=== PATIENT | female | born 1955 ===

== ENCOUNTER 2025-08-26 15:05 | Outpatient (AMB) | payer MEDICARE, SELFPAY ==
--- OUTSIDE RECORDS SUMMARY | 2024-07-22 09:00 | XMS_ITS ---
Author Organization [facility] Address [address] [place] [address] Care Team Providers Care Leadership Program Intern Name Role Phone Sera LEUNG, Zain Primary Care Provider Unav ailable Angel Martinez Unavailable [phone] Encounters Encounter Location Date [facility] [address] 07/22/2024 Angel Martinez Plan Of Treatment No Information Progress Notes * Allie DENNEY SDOB:1955 (69 yo F)Acc No.[id number]:07/22/2024 Progress Note Patient: Allie WHITE Provider: Zoe Martinez DPM :1955 A ge:68 Y S ex:Female Date:07/22/2024 Address:[address], [place] [facility] Pcp:Zain Zamora MD Subjective: * Chief Complaints: * * Medical History: Objective: * Vitals: Assessment: Plan: * Treatment: * Images: * The named appointment provid er may or may not be the originator of this progress note, and it is not deemed complete until electronically signed by the appointment provider. Sign off status: Pending * Provider: Zoe Martinez DPM Date: 09/21/2023 Generated for Yuliyai ng/Fagabrieleg/eTransmitting on: 10/27/2024 10:36 PM EST
--- OUTSIDE RECORDS SUMMARY | 2024-07-28 10:45 | XMS_ITS ---
[facility] Organization [facility] Address [address] [place] [address] Care Team Providers Care Oncology Physician Name Role Phone Sera LEUNG, Zain Primary Care Provider Unav ailable Angel Martinez Unavailable [phone] Mihaela Hamilton [phone] Encounters Encounter Location Date Provider Diagnosis [facility] [place] [address] [place] [address] [place] [id number] 07/28/2024 Mihaela Hamilton Plan Of Treatment No Information Progress Notes * Allie DENNEY SDOB:1955 (69 yo F)Acc No.[id number]:07/28/2024 Progress Note Patient: Allie WHITE Provider: Merary Hamilton DPM :1955 A ge:68 Y S ex:Female Date:07/28/2024 Address:[address], [place] [facility] Pcp:Zain Zamora MD Subjective: * Chief Complaints: * * Medical History: Objective: * Vitals: Assessment: Plan: * Treatment: * Images: * The named appointment provid er may or may not be the originator of this progress note, and it is not deemed complete until electronically signed by the appointment provider. Sign off status: Pending * Provider: Merary Hamilton DPM Date: 09/27/2023 Generated for Danieal vora/Ann/eTransmitting on: 10/27/2024 10:36 PM EST
--- OUTSIDE RECORDS SUMMARY | 2025-05-12 10:15 | XMS_ITS ---
Author Organization [facility] Address [address] [place] [address] Care Team Providers Care Python Java Developer Name Role Phone Sera LEUNG, Zain Primary Care Provider Unav ailable JuanAngel al Unavailable [phone] Mihaela Hamilton [phone] Encounters Encounter Location Date Provider Diagnosis [facility] [address] [place] [address] 05/12/2025 Mihaela Hamilton Plan Of Treatment No Information Progress Notes * Allie DENNEY SDOB:1955 (69 yo F)Acc No.[id number]:05/12/2025 Progress Note Patient: Allie WHITE Provider: Merary Hamilton DPM :1955 A ge:69 Y S ex:Female Date:05/12/2025 [facility] [facility] Pcp:Zain Zamora MD Subjective: * Chief Complaints: * * Medical History: Objective: * Vitals: Assessment: Plan: * Treatment: * Images: * The named appointment provid er may or may not be the originator of this progress note, and it is not deemed complete until electronically signed by the appointment provider. Sign off status: Pending * Provider: Merary Haimlton DPM Date: 0 05/12/2025 Generated for Daniela vora/Ann/eTransmitting on: 1 10/27/2024 10:36 PM EST
[2025-08-26 15:25] VITALS: BMI 34.6
--- NOTE | 2025-08-26 15:25 | A.PHYSOV_ITS ---
Vital Signs 08/26/25 15:25 Height 5 ft 4.5 in Weight 205 lb BMI 34.6 Intake Visit Reasons: F/U after injection 06/25/2025 Intake Note: Patient is a 69 year old female in office today for a follow up after right l5- s1 epidural steroid injection 06/25/25. Primary Grade Teacher Required: No Allergies No Known Allergies Allergy (Verified 08/26/25 15:24) HPI Comments Details: History of Present Illness The patient is a 69 year old female presenting for a follow-up visit for chronic lower back pain and lumbar radiculitis. She was initially seen on April 05, 2025, for lower back pain radiating to the right leg and buttock, which was exacerbated by prolonged standing and sitting. She reported numbness in both legs with walking and standing, and a positive shopping cart sign. The pain has precluded her from traveling, and plane flight triggered a severe exacerbation of her right buttock pain. Her past medical history is significant for osteopenia, anxiety, and depression. Previous treatments include trials of cyclobenzaprine and naproxen without benefit, and she uses acetaminophen as needed. She has previously received care from the [facility]. Lumbar sacral spine x-rays were performed on February 02, 2025. An MRI of the lumbar spine on May 03, 2025, showed multi-level foraminal narrowing and nerve root impingement. She received an L5-S1 epidural injection on June 25, 2025, which was recommended by the [facility] program. She reports at least 90% reduction in her painful symptomatology. Unfortunately pain continues to be exacerbated by prolonged standing and walking. Pain Description - Location: Chronic lower back pain with radiation to the right leg and buttock. - Quality: Previously described as sharp and unrelenting, now dull after an epidural injection. - Associated Symptoms: Reports numbness in both legs with walking and prolonged standing. - Exacerbating Factors: Prolonged standing, prolonged sitting, and walking too far. - Relieving Factors: Reports 90% pain improvement from an L5-S1 epidural injection; leaning forward provides relief (positive 'shopping cart sign'). - Interference with Function: The pain has previously precluded her from being able to travel. Results - Lumbar Sacral Spine X-rays (02/02/2025): Mentioned as completed, results not detailed. - Lumbar Sacral Spine MRI (05/03/2025): Findings were consistent with moderate to severe left and mild right foraminal narrowing at L3-L4. - At L4-L5, there was a disc bulge with bilateral subarticular zone narrowing, impingement of bilateral descending L5 nerve roots, and moderate to severe left with moderate right neural foraminal narrowing. - At L5-S1, there was bilateral subarticular zone narrowing with contact and impingement of descending S1 nerve roots. [facility] Medical History (Updated 08/26/25 @ 16:33 by Mohamud Abarca DO) Spinal stenosis, lumbar region with neurogenic claudication Lumbar radiculitis Surgical History (Updated 08/26/25 @ 15:27 by Tara Kimball MA) History of ankle surgery S/P appendectomy History of tonsillectomy Social History (Updated 08/26/25 @ 15:28 by Tara Kimball MA) Household Members: Spouse Alcohol intake: current Alcohol intake frequency: does not drink Patient Tobacco Use Status: Never used Tobacco Use of substances other than those prescribed or required for medical reasons: No Current occupational status: retired Review of Systems Narrative Review of Systems - Musculoskeletal: Reports chronic lower back pain, currently with 90% improvement. - Reports dull right-sided sciatic pain. - Neurological: Reports a spongy and numb sensation in her legs with prolonged walking or standing. - Psychiatric: Reports a history of anxiety and depression. Physical Exam Exam Exam: Physical Exam Patient appears to be in no acute distress, appropriately conversant oriented. She ambulates without antalgia. Lumbar extension was restricted. Dural tension signs were negative. Neurological examination of lower extremities was nonfocal. She demonstrated no upper motor neuron signs. She was able to perform heel walk and toe walk with support for balance. Vital Signs: BMI result Body Mass Index 34.6 Assessment & Plan Assessment & Plan (1) Lumbar radiculitis: Code(s): M54.16 - Radiculopathy, lumbar region Category: Medical (2) Spinal stenosis, lumbar region with neurogenic claudication: Code(s): M48.062 - Spinal stenosis, lumbar region with neurogenic claudication Category: Medical Plan Pain Management - Affect: The patient is thrilled with her pain reduction and notes the pain had previously prevented her from traveling. - Analgesia: Reports 90% pain improvement following an L5-S1 epidural injection two months ago. - She uses acetaminophen as needed. - Adverse Effects: No adverse effects were discussed. - Activities of Daily Living: Her functional goal is to be able to travel. - She still experiences numbness in her legs with prolonged walking or standing. - Aberrant Drug Related Behaviors: No aberrant behaviors were noted or discussed. Plan Patient was informed and verbally consented to the use of an ambient scribe for clinic note documentation during this visit. 1. Chronic Lower Back Pain With Lumbar Radiculitis The patient reports significant, 90% improvement in her chronic lower back and right sciatic pain following an L5-S1 epidural steroid injection two months prior. Her residual symptoms of leg numbness with prolonged activity are consistent with her known lumbar foraminal stenosis. The condition is not currently severe enough to warrant surgical consideration. No immediate intervention is planned, as she is doing well. The patient was advised to call to schedule a repeat injection if her pain begins to gradually worsen, with the understanding that injections are generally spaced at least three months apart. Lifestyle modifications were suggested, including using a step stool when standing, using a walker for long distances, and taking rest breaks during ambulation. 2. Osteopenia The patient has a known history of osteopenia and expressed concern regarding corticosteroid injections. She was reassured that receiving up to four injections per year is considered safe and has not been shown to negatively affect bone quality. Discussion Notes I reviewed with the patient her excellent response to the L5-S1 epidural steroid injection, noting her report of 90% pain improvement. I explained that her residual leg numbness with prolonged standing or walking is secondary to the foraminal stenosis identified on her MRI. We agreed that no immediate further intervention is necessary given her current level of relief. I advised her to call the office for a follow-up visit to consider a repeat injection if her pain begins to gradually return, noting that she does not need to wait for it to become severe. I clarified that injections are typically performed at a minimum of three-month intervals. Regarding her concerns about osteopenia, I reassured her that up to four corticosteroid injections per year are considered safe and will not negatively impact her bone quality. I provided anticipatory guidance on activity modification, such as using a step stool while standing and a rollator for prolonged ambulation, to minimize symptoms. I confirmed that future office procedures can be done in the office, while any procedure requiring sedation would be done at the hospital. Patient Instructions - Continue your current activities as you feel comfortable. No further treatment is needed at this time since you are feeling much better. - If your pain starts to come back, please call our office to make an appoin tment. You do not need to wait for the pain to become severe. - When standing for long periods, like when cooking, rest one foot on a small stool to help with discomfort. - When you walk, if you start to feel numbness, find a place to sit or lean against a wall for a minute or two before continuing. - Using a walker with wheels (a rollator) may help you walk longer distances with less pain. - It is safe for you to receive up to four steroid injections in a year, as this will not harm your bones. - You do not need to schedule another appointment now. Call us when you need us. Coding Level of Care Code Est Pt Level 3 (27322) Add On Problem Visit Only Diagnoses Lumbar radiculitis M54.16 Spinal stenosis, lumbar region with neurogenic claudication M48.062
--- OUTSIDE RECORDS SUMMARY | 2025-08-26 22:36 | XMS_ITS | Patient Health Record ---
Author [facility] Address [address] [place] [address] Care Team Providers Care Steel Fabricator Name Role Phone Sera LEUNG, Zain Primary Care Provider Unav ailable Angel Martinez Unavailable [phone] HamiltonMihaela Unavailable [phone] Allergies Allergen (clinical drug ingredient) Drug/Non Drug Allergy documented on EMR Reaction Allergy Type Onset Date Status erythromycin Erythromycin Tremors, Sensitive skin Drug Allergy Active Results Component Value Reference Range Notes HEMOGLOBIN A1C (GLYCOHEMOGLO BIN) Reviewed date:11/16/2024 03:44:46 PM Interpretation: Performing Lab: Notes/Report: HEMOGLOBIN A1C % (HH) 5.7 HEMOGLOBIN A1C (GLYCOHEMOGLO BIN) Reviewed date:02/16/2025 03:36:19 PM Interpretation: Performing Lab: Notes/Report: HEMOGLOBIN A1C % (HH) 5.7 Reason For Referral No Information Medications Medication SIG (Take, Route, Frequency, Duration) Notes Start Date End Date Status Lipitor Active Provera Not-Taking Fluoxetine Active Calcium 600 MG 1 tablet with meals Orally Twice a day; Duration: 30 day(s) Not-Taking Multivitamins as directed Orally Active Mounjaro Active Extra Depth Orthopedic Shoes (1 Pair) with Customized Heat Molded Multidensity Innersoles (3 Pair) as directed Dx: NIDDM (E11.9), Hammertoe Foot Deformity (M20.41,M20.42), Preulcerative Skin Lesion(s) (L85.1) Active Vitamin D 600 1 capsule Orally 2x day; Duration: 30 day(s) Active Rybelsus Not-Taking Gabapentin Not-Takin g metFORMIN HCl Not-Ta eyal Paxil 30 MG 1 tablet in the morn ing Orally Once a day; Duration: 30 day(s) Not-Taking Trulicity Not-Taking Immunizations Vaccine Route Administration Date Status Comme nts Influenza Unknown 06/18/2024 Administered Social History Tobacco Use: Social History Observation Description Date Details (start date - stop date) Never Smoker NA - NA Tobacco use other than smoking: Question Answer Notes Are you an other tobacco user? No Tobacco Control (Standard) Question Answer Notes Tobacco use: Nonsmoker Additional Findings: Tobacco non-user Current no nsmoker AUDIT-C (Standard) Question Answer Notes Did you have a drink containing alcohol in the p ast year? No Points 0 Interpretation Negative Problems Problem Type SNOMED Code ICD Code Onset Dates Problem Status W/U Status Risk Notes Problem Acquired hammer toe of right foot (057439849512437 5) Other hammer toe(s) (acquired), right foot (M20.41) Active confirmed Problem Acquired hammer toe of left foot (054636601689768 3) Other hammer toe(s) (acquired), left foot (M20.42) Active confirmed Problem Type II diabetes mellitus without complication (134779457) Type 2 diabetes mellitus without complication (E11.9) Active confirmed Vital Signs Blood pressure diastolic 65 mm Hg 06/22/2025 Height 5ft 5in in 06/22/2025 Blood pressure systolic 128 mm Hg 06/22/2025 Weight 210 lbs 06/22/2025 BMI 34.94 kg/m2 06/22/2025 Procedures Procedure Date Ordered Date Performed Result Body Sit e 27197-DTHKTZP NAIL, 6 OR MORE 11/16/2024 N/A Encounters Encounter Location Date Provider Diagnosis [facility] [address] 11/16/2024 Angel Juan Pain of toe of right foot M79.674 ; Onychomycosis B35.1 ; Pain of toe of left foot M79.675 ; Type 2 diabetes mellitus without complication E11.9 ; Other hammer toe(s) (acquired), right foot M20.41 and Other hammer toe(s) (acquired), left foot M20.[address] [facility] [address] 02/16/2025 Mihaela Hamilton Pain of toe of right foot M79.674 ; Pain of toe of left foot M79.675 ; Onychomycosis B35.1 and Type 2 diabetes mellitus without complication E11.9 [facility] [address] [address] 06/22/2025 Mihaela Hamilton Pain of toe of right foot M79.674 ; Pain of toe of left foot M79.675 ; Onychomycosis B35.1 and Type 2 diabetes mellitus without complication E11.9 [facility] [address] [address] 02/17/2025 Angel Martinez [address] [address] 06/22/2025 Angel Martinez Assessments Encounter Date Diagnosis (ICD Code) Assessment Notes Treatment Notes Treatment Clinical Notes Section Notes 11/16/2024 Pain of toe of right foot (ICD-10 - M79.674) 02/16/2025 Pain of toe of right foot (ICD-10 - M79.674) 06/22/2025 Pain of toe of right foot (ICD-10 - M79.674) 11/16/2024 Pain of toe of left foot (ICD-10 - M79.675) 06/22/2025 Onychomycosis (ICD-10 - B35.1) 02/16/2025 Onychomycosis (ICD-10 - B35.1) 06/22/2025 Pain of toe of left foot (ICD-10 - M79.675) 11/16/2024 Onychomycosis (ICD-10 - B35.1) 02/16/2025 Pain of toe of left foot (ICD-10 - M79.675) 11/16/2024 Type 2 diabetes mellitus without complication (ICD-10 - E11.9) 02/16/2025 Type 2 diabetes mellitus without complication (ICD-10 - E11.9) 06/22/2025 Type 2 diabetes mellitus without complication (ICD-10 - E11.9) 11/16/2024 Other hammer toe(s) (acquired), right foot (ICD-10 - M20.41) Patient Educated with: DIABETIC FOOT CARE INSTRUCTIONS.p df (DIABETIC FOOT CARE INSTRUCTIONS.p df) 11/16/2024 Other hammer toe(s) (acquired), left foot (ICD-10 - M20.42) Plan Of Treatment Pending Test Test Name Order Date [id number] NAIL, 6 OR MORE 06/22/2020 [id number] NAIL, 6 OR MORE 03/15/2021 [id number] NAIL, 6 OR MORE 08/17/2021 44638-[id number] NAIL, 6 OR MORE 08/15/2022 [id number] NAIL, 6 OR MORE 12/10/2022 [id number] NAIL, 6 OR MORE 04/19/2023 [id number] NAIL, 6 OR MORE 08/28/2023 [id number] NAIL, 6 OR MORE 04/20/2024 [id number] NAIL, 6 OR MORE 11/16/2024 [id number] NAIL, 6 OR MORE 09/20/2014 [id number] Plate 09/20/2014 47692-Drfelvcr Plate 06/22/2015 63531-Bcphzcrw Plate 10/19/2013 [id number] Plate Each Additional 03/2015 45736-Ivfdyeqj Plate Each Additional 01/2015 Insurance Providers Payer Name Payer Address Payer Phone Subscriber Number Group Number Insured Name Patient Relationship to Insured Coverage Start Date Coverage End Date Medicare National [employer] [address] [place] [address] [id number] Ardianynes Allie Self - patient is the insured AARP Secondary to Medicare [address] [place] [address] [id number] Allie Denney Self - patient is the insured Medical (General) History Medical History History ICD Code anxiety Arthritis back, hip, knee pain broken bones psoriasis/eczema sciatica measles mumps chicken pox Diabetic Surgical History Surgery Date(Month/Year) Hospitalization History Reason Date(Month/Year) Tooth Extraction 06/2016, 09/2016
--- OUTSIDE RECORDS SUMMARY | 2025-08-26 22:36 | XMS_ITS | Clinical Summary ---
Author Organization [facility] ity Address [address] [place] [address] Care Team Providers Care Contact Center Specialist Name Role Phone Merary Neff MD Primary Care Provider [phone] Allergies Active Allergy Reactions Criticality Noted Date Comments Erythromycin Lactobionate Medium 03/27/2016 Erythrocin trenbaling Medications atorvastatin (LIPITOR) 20 mg tablet Take 1 tablet (20 mg total) by mouth 1 (one) time each day. 2 Active blood-glucose meter [facility] [place] Glucose Monitoring Suppl (Contour Next Monitor) w/Device Kit- 1 Kit by Does not apply route daily. 1 Active cholecalciferol (VITAMIN D-3) 5,000 Units tablet Take 1 tablet (5,000 Units total) by mouth 1 (one) time each day. Active blood sugar diagnostic (Contour Next Test Strips) test strip APPLY 1 STRIP TOPICALLY ONCE DAILY TO CHECK BLOOD SUGAR 3 Active dulaglutide (Trulicity) 0.75 mg/0.5 mL pen injector injection Inject 0.75 mg into the skin every 7 days. 3 Active gabapentin (NEURONTIN) 300 mg capsule Take 1 capsule (300 mg total) by mouth at bedtime. 3 Active LANCETS MISC Lancets 30G Misc- 1 Stick by Does not apply route daily. Dx E11.65 3 Active LORazepam (ATIVAN) 1 mg tablet Take 0.5-1 Tablets by mouth at bedtime. 3 Active metFORMIN XR (GLUCOPHAGE-XR) 500 mg 24 hr tablet Take 1 Tablet by mouth daily (with breakfast). 3 Active PARoxetine (PAXIL) 40 mg tablet Take 1 tablet (40 mg total) by mouth 1 (one) time each day in the morning. 2 Active MULTIVITAMIN WITH MINERALS ORAL 1 tab daily Active Active Problems Problem Noted Date Diagnosed Date Morbid obesity with BMI of 40.0-44.9, adult 09/16 Controlled type 2 diabetes m ellitus without complication, without long-term current use of insulin 10/23/2022 Anxiety 01/11/2022 Insomnia 08/29/2021 Overview (09/30/2024): manjitapafaina Osteopenia 07/08/2020 Overview (09/30/2024): 2020- on vit D repeat in 2 years Lipoma of back 02/10/2016 Elevated blood sugar 06/17/2014 Overview (09/30/2024): A1c 6.4 outside lab 05/30 6.0 outside lab 12/29 Lumbago 08/28/2013 Psoriasis 07/03/2011 Immunizations Immunization Administration Dates Next Due Influenza trivalent, 0.5mL ( Fluzone High-dose) 65yo and older 07/12/2022,08/03/2021,07/20/2020 Influenza trivalent, with pr eservative (Fluzone; Afluria) 6mo and older 07/19/2011,08/30/2008,08/21/2007,08/29,08/03/2005 Influenza, Unspecified 06/13/2015 Moderna SARS-CoV-2 COVID-19, mRNA, LNP-S, preservative free 07/13/2021,10/26/2020,09/28/2020 Pneumococcal conjugate 13 va lent (Prevnar 13, PCV13) 2mo and older 07/20/2020 Pneumococcal polysaccharide 23 valent (Pneumovax 23) 2yo and older 08/21/2021,07/19/2003 Td Tetanus diptheria (Tdvax) 7yo and older 07/20/2020 Tdap Tetanus diptheria acell ular pertussis (Boostrix; Adacel) 7yo and older 08/30/2008 Zoster Live 03/11/2015 Surgical History Surgery Date Site/Laterality Comments TONSILLECTOMY PROCEDURE: HISTORICAL TONSILLECTOMY ECTOPIC SURGERY 1984 PROCEDURE: HISTORICAL ECTOPIC SURGERY COLONOSCOPY 07/22/15 PROCEDURE: HISTORICAL COLONOSCOPY; COMMENT: tics; repeat in 10 yrs under propofol Medical History Medical History Date Comments Elevated blood sugar DX:Elevated blood sugar Lumbago DX:Lumbago Morbid obesity (CMS/HCC V24, CMS/HCC V28) DX:Morbid obesity (HCC) Psoriasis DX:Psoriasis Family History Medical History Relation Name Comments Other cancer Brother Liver Other cancer Father Brain Breast cancer Mother Diabetes Mother Hypertension Mother Relation Name Status Comments Brother Father Mother Social History Tobacco Use Types Packs/Day Years Used Date Smoking Tobacco: Never Smokeless Tobacco: Never Alcohol Use Standard Drinks/Week Comments Yes 0 (1 standard drink = 0.6 oz pur e alcohol) Comments Unknown Sex and Gender Information Value Date Recorded Sex Assigned at Not on file Legal Sex Female 12:59 AM EST Gender Identity Not on file Sexual Orientation Not on file Last Filed Vital Signs Vital Sign Reading Time Taken Comments Blood Pressure 108/72 10/23/2022 2:48 PM EST Pulse 80 10/23/2022 2:48 PM EST Temperature - - Respiratory Rate - - Oxygen Saturation - - Inhaled Oxygen Concentration - - Weight 118 kg (261 lb 3.2 oz) 10/23/2022 2:48 PM EST Height 162.6 cm (5' 4 ) 10/23/2022 2:48 PM EST Body Mass Index 44.84 10/23/2022 2:48 PM EST Plan of Treatment Health Maintenance Due Date Last Done Comments Diabetes: Annual Foot Exam 1964 Diabetes: Annual Retina Eye Exam 1964 RSV Immunization Adult Patients (1 - Risk 50-74 years 1-dose series) 2004 Zoster Vaccines (2 of 3) 05/06/2015 03/11/2015 Falls Risk Assessment 08/25/2022 Social Influencers of Health Screening 08/25/2022 Diabetes: Annual GFR (Glomerular Filtration Rate) 06/28/2023 06/28/2022 Diabetes: Annual Urine Albumin-Creatinine Ratio (uACR) 11/01/2023 06/28/2022 Diabetes: Blood Sugar Control Test (HGBA1C) 11/01/2023 10/22/2022 Breast Cancer Screening 07/02/2024 07/02/20, 05/24/2021, 05/18/2020, Additional history exists Depression Screening 09/16/2024 COVID-19 Vaccine ( season) 2025 07/13/2021, 10/26/2020, 09/28/2020 Influenza Vaccine (#1) 2025 2, 08/03/2021, 07/20/2020, Additional history exists Colorectal Cancer Screening: Colonoscopy 07/22/2025 07/22/2015 Cholesterol Screening (Lipid Panel) 06/28/2027 06/28/2022 DTaP,Tdap,and Td Vaccines (3 - Td or Tdap) 07/20/2030 07/20/2020, 08/30/2008 Osteoporosis Screening (Bone Density Screening) 08/01/2032 08/01/2022, 07/07/2020 Hepatitis C Screening Completed 10/12/2015 Pneumococcal Vaccine: 50+ Years Completed 08/21/2021, 07/20/2020, 07/19/2003 HIB Vaccines Aged Out No longer eligi ble based on patient's age to complete this topic HPV Vaccines Aged Out No longer eligi ble based on patient's age to complete this topic Hepatitis A Vaccines Aged Out No long er eligible based on patient's age to complete this topic Hepatitis B Vaccines Aged Out No long er eligible based on patient's age to complete this topic IPV Vaccines Aged Out No longer eligi ble based on patient's age to complete this topic MMR Vaccines Aged Out No longer eligi ble based on patient's age to complete this topic Meningococcal ACWY Vaccine Aged Out N o longer eligible based on patient's age to complete this topic Meningococcal B Vaccine Aged Out No l onger eligible based on patient's age to complete this topic RSV Immunization Patients Under 20 months Aged Out No longer eligible based on patient's age to complete this topic Varicella Vaccines Aged Out No longer eligible based on patient's age to complete this topic Procedures Procedure Name Priority Date/Time Associated Diagnosis Comments HEMOGLOBIN A1C Routine 10/22/2022 DXA BONE DENSITY STUDY 1+ SITS AXIAL SKEL Routine 08/01/2022 1:31 PM EST Other specified disorders of bone density and structure, unspecified site HILARIA SCREENING DIGITAL Routine 07/02/2022 5:27 PM EDT Encounter for screening mammogram for malignant neoplasm of breast URINE ALBUMIN CREATININE RATIO Routine 06/28/2022 ANNUAL BMP BLOOD TEST Routine 06/28/2022 LIPID PANEL Routine 06/28/2022 HEPATITIS C SCREENING Routine 10/12/2015 COLONOSCOPY Routine 07/22/2015 from Last 3 Months or Most Recently Relevant to Health Maintenance Results * (ABNORMAL) Hemoglobin A1c (10/22/2022) Hemoglobin A1C 6.2(A) 4.0 - 5.6 % Blood Venous blood specimen / Unknown us Historical Provider LAB BLOOD ORDERABLES Laverne l Result * DXA BONE DENSITY STUDY 1+ SITS AXIAL SKEL (08/01/2022 1:31 PM EST) Anatomical Region Laterality Modality Bone Densitometr y 06/28/2022 11:5 8 AM EDT Narrative 08/01/2022 5:05 PM EST BONE DENSITY Lumbar Spine T-score is +1.7 (SD relative to 20-29 y/o adult) Z-score is +3.6 (SD relative to age matched peers) This is normal by criteria defined by the WHO. Left Hip T-score is -1.7 Z-score is +0.0 This is consistent with osteopenia by criteria defined by the WHO. Comparison exam(s): significant decrease in bone density of hip when compared to most recent bone density examination Confidence level is +/-95%. Impression: Based on the World Health Organization criteria, Allie Denney should be classified as having osteopenia. This patient has a 8.3% risk of major osteoporotic fracture and a 1% risk of hip fracture over the next 10 years. (World Health Organization Fracture Risk Assessment) [facility] Department of Internal Medicine recommends using National Osteoporosis Foundation (NOF) guidelines in treatment decisions related to osteoporosis. NOF guidelines suggest considering treatment for postmenopausal women and men aged 50 or older presenting with the following: History of hip or vertebral fracture. T-score less than or equal to -2.5 (DXA) at the femoral neck, total hip, or spine, after appropriate evaluation to exclude secondary causes. Low bone mass (T-score between -1.0 and -2.5 at the femoral neck or spine) AND a 10-year probability of a hip fracture greater than or equal to 3% OR a 10-year probability of a major osteoporosis-related fracture greater than or equal to 20% based on the [place]-adapted WHO algorithm Please note that all treatment decisions require clinical judgment and consideration of individual patient factors, including patient preferences, co-morbidities, previous drug use, risk factors not captured in the FRAX model (e.g., frailty, falls, vitamin D deficiency, increased bone turnover, interval significant decline in bone density) and possible under- or over-estimation of fracture risk by FRAX. Procedure Note Breanna Talamantes MD - 10/21/2023 BONE DENSITY Lumbar Spine T-score is +1.7 (SD relative to 20-29 y/o adult) Z-score is +3.6 (SD relative to age matched peers) This is normal by criteria defined by the WHO. Left Hip T-score is -1.7 Z-score is +0.0 This is consistent with osteopenia by criteria defined by the WHO. Comparison exam(s): significant decrease in bone density of hip whencompared to most recent bone density examination Confidence level is +/-95%. Impression: Based on the World Health Organization criteria, Allie Denney should beclassified as having osteopenia. This patient has a 8.3% risk of majorosteoporotic fracture and a 1% risk of hip fracture over the next 10years. (World Health Organization Fracture Risk Assessment) [facility] Department of Internal Medicine recommendsusing National Osteoporosis Foundation (NOF) guidelines in treatmentdecisions related to osteoporosis. NOF guidelines suggest consideringtreatment for postmenopausal women and men aged 50 or older presentingwith the following: History of hip or vertebral fracture. T-score less than or equal to -2.5 (DXA) at the femoral neck, total hip,or spine, after appropriate evaluation to exclude secondary causes. Low bone mass (T-score between -1.0 and -2.5 at the femoral neck or spine)AND a 10-year probability of a hip fracture greater than or equal to 3% ORa 10-year probability of a major osteoporosis-related fracture greaterthan or equal to 20% based on the [place]-adapted WHO algorithm Please note that all treatment decisions require clinical judgment andconsideration of individual patient factors, including patientpreferences, co-morbidities, previous drug use, risk factors not capturedin the FRAX model (e.g., frailty, falls, vitamin D deficiency, increasedbone turnover, interval significant decline in bone density) and possibleunder- or over-estimation of fracture risk by FRAX. us Maria D Yanez DO [facility] [place] PROCEDURES Final Resu lt * HILARIA SCREENING DIGITAL (07/02/2022 5:27 PM EDT) Anatomical Region Laterality Modality Mammography 07/02/2022 1:40 PM EDT Narrative 07/02/2022 5:27 PM EDT [facility] Diagnostic Imaging Department [address] [place] [address] Patient: RONDACALISTAALLIE D.O.B./Age/Sex: 1955 - 66 - F Unit#: [id number] Location/Status: [facility] CLI Mnemonic/Ordering Site: [facility] Ordering Physician: LEONARDO NEFF MD [facility] Screening Digital - 07/02/22 - 1356 EXAM: [facility] Screening Digital EXAM DATE AND TIME: 07/02/2022 1:56 PM HISTORY: Screening. Mother had breast carcinoma at age 50. COMPARISON: 05/23/21, 05/18/20, 02/16/19, 02/13/18 TECHNIQUE: CC and MLO views of both breasts were obtained using full field digital mammography. Bilateral digital breast tomosynthesis was performed in the MLO projection. Computer aided detection with [employer] 7.2-H and [employer] 3D 3.1 was employed. TISSUE DENSITY: b. There are scattered areas of fibroglandular density. FINDINGS: No suspicious masses, grouped microcalcifications, or areas of architectural distortion are seen. The skin and vascularity are unremarkable. IMPRESSION: Stable mammographic appearance of the breasts. No evidence of malignancy is seen. A negative mammogram in the presence of a clinically suspicious palpable abnormality does not preclude the possibility of malignancy or alter the indications for biopsy. BI-RADS: Category 1: Negative RECOMMENDATION(S): 1: Routine screening mammogram BILATERAL in 1 year. [id number], [id number], 7025F Dictating Physician: AMBIKA ARANA MD Electronically Signed by: AMBIKA ARANA MD Dic Date/Time: 07/02/221725 Sign date/Time: 07/02/221726 Procedure Note Ambika Arana MD - 09/05/2022 [facility] Diagnostic Imaging Department [address] [place] [id number] Patient: ALLIE DENNEY /Age/Sex: 1955 - 66 - F Unit#: [id number] Location/Status: SPDIMAM/REG CLI Mnemonic/Ordering Site: [facility] Ordering Physician: LEONARDO NEFF MD [facility] Screening Digital - 07/02/22 - 1356 EXAM: [facility] Screening Digital EXAM DATE AND TIME: 07/02/2022 1:56 PM HISTORY: Screening. Mother had breast carcinoma at age 50. COMPARISON: 05/23/21, 05/18/20, 02/16/19, 02/13/18 TECHNIQUE: CC and MLO views of both breasts were obtained using fullfield digital mammography. Bilateral digital breast tomosynthesis was performedin the MLO projection. Computer aided detection with [employer] 7.2-H and[employer] 3D 3.1 was employed. TISSUE DENSITY: b. There are scattered areas of fibroglandular density. FINDINGS: No suspicious masses, grouped microcalcifications, or areas ofarchitectural distortion are seen. The skin and vascularity are unremarkable. IMPRESSION: Stable mammographic appearance of the breasts. No evidence of malignancyis seen. A negative mammogram in the presence of a clinically suspicious palpable abnormality does not preclude the possibility of malignancy or alter the indications for biopsy. BI-RADS: Category 1: Negative RECOMMENDATION(S): 1: Routine screening mammogram BILATERAL in 1 year. [id number], [id number] 3341F, 7025F Dictating Physician: AMBIKA ARANA MD Electronically Signed by: AMBIKA ARANA MD Dic Date/Time: 07/02/221725 Sign date/Time: 07/02/221726 Merary Neff MD IMG BI PROCEDURES Final Result * Urine Albumin Creatinine Ratio (06/28/2022) Urine Albumin Creatinine Ratio abstracted Historical Provider HEALTH MAINTENANCE Final Result * Annual BMP Blood Test (06/28/2022) Annual BMP Blood Test abstracted Historical Provider HEALTH MAINTENANCE Final Result * Lipid panel (06/28/2022) [facility] LDL/HDL Ratio 2 0 - 4 Triglycerides 133 0 - 150 mg/dL Cholesterol 134 0 - 200 mg/dL HDL 61 >=40 mg/dL LDL Cholesterol 47 0 - 100 mg/dL Blood Venous blood specimen / Unknown [facility] Provider LAB BLOOD ORDERABLES Laverne l Result * Hepatitis C Screening (10/12/2015) [facility] Hepatitis C Screening abstracted [facility] Provider HEALTH MAINTENANCE Final Result * Colonoscopy (07/22/2015) [facility] Colonoscopy no interpretation , abstracted Anatomical Region Laterality Modality Other [facility] Provider HEALTH MAINTENANCE Final Result from Last 3 Months or Most Recently Relevant to Health Maintenance Care Teams Contact Center Specialist Relationship Specialty Start Date End Date Merary Neff MD [address] [place] [id number] PCP - General 08/30/09
== END 2025-08-26 16:45 | disposition home or self-care (01) ==
LOC: HO.HPHYS 15:05
PROVIDERS: PCP Internal Medicine; Visit Provider Physical Medicine & Rehabilitation
DX: M54.16 Radiculopathy, lumbar region (principal); M48.062 Spinal stenosis, lumbar region with neurogenic claudication
CPT/HCPCS: 99213; G2211

== ENCOUNTER → 2025-08-26 15:05 | Outpatient (BNVA) | payer MEDICARE, SELFPAY | PROVIDERS: PCP Internal Medicine; Visit Provider Physical Medicine & Rehabilitation | DX: M54.16 Radiculopathy, lumbar region (principal); M48.062 Spinal stenosis, lumbar region with neurogenic claudication | CPT/HCPCS: 99212 ==